=== PATIENT | male | born 1990 | race Caucasian/White ===

== ENCOUNTER 2022-05-28 18:41 | Emergency (ER) | payer OTHER ==
[2022-05-28] MEDS: Ketorolac 30 MG/ML SDV IM ONE (19:41)
[2022-05-28] MEDS: Lidocaine 2% Viscous Solution 15 ML UD PO ONE (19:41)
== END 2022-05-28 21:14 | disposition home or self-care (01) ==
LOC: FB.ED 18:41
DX: S80.211A Abrasion, right knee, initial encounter (principal); T22.00XA Burn of unspecified degree of shoulder and upper limb, except wrist and hand, unspecified site, initial encounter; T21.04XA Burn of unspecified degree of lower back, initial encounter; V29.9XXA Motorcycle rider (driver) (passenger) injured in unspecified traffic accident, initial encounter
CPT/HCPCS: 96372; 99282; 99283; A9270-GY; J1885

== ENCOUNTER 2022-05-31 13:42 | Emergency (ER) | payer OTHER | END 2022-05-31 14:50 | disposition home or self-care (01) | LOC: FB.ED 13:42 | DX: S80.811D Abrasion, right lower leg, subsequent encounter (principal); S80.812D Abrasion, left lower leg, subsequent encounter; S40.811D Abrasion of right upper arm, subsequent encounter; S40.812D Abrasion of left upper arm, subsequent encounter; I10 Essential (primary) hypertension; E66.9 Obesity, unspecified; Z68.30 Body mass index [BMI] 30.0-30.9, adult; Z86.16 Personal history of COVID-19; Z79.899 Other long term (current) drug therapy; Z48.01 Encounter for change or removal of surgical wound dressing | CPT/HCPCS: 99281; 99282 ==